=== PATIENT | male | born 1940 | race Caucasian/White ===

== ENCOUNTER 2019-06-28 11:25 | Emergency (ER) | payer MEDICARE ==
[2019-06-28 11:29] VITALS: TEMP 98
--- NOTE | 2019-06-28 11:48 | ED ---
GI Bleed HPI - General Chief complaint: GI Bleed Stated complaint: Blood in stool Time Seen by Provider: 06/28/19 11:30 Source: patient, RN notes reviewed Mode of arrival: ambulatory Limitations: no limitations - History of Present Illness Initial comments: This is a 79-year-old male with essentially benign past medical history who is nonsmoker nondrinker who also states he had a colonoscopy that was within normal limits within the last year who states he had 2 bowel movements this morning that were bowel movement Red colored material. He's not sure what his he does state he has been eating a lot of Jell-O especially red Jell-O recently. After discussion with his he did present with this complaint in for evaluation. He does deny any fevers chills nausea vomiting sweats abdominal pain of any sort he's not on any medications at all. No other modifying factors MD complaint: other - Related Data Home Medications Medication Instructions Recorded Confirmed No Known Home Medications 06/28/19 06/28/19 Allergies Allergy/AdvReac Type Severity Reaction Status Date / Time No Known Allergies Allergy Verified 06/28/19 12:15 Review of Systems ROS Statement: Those systems with pertinent positive or pertinent negative responses have been documented in the HPI. ROS Other: All systems not noted in ROS Statement are negative. Past Medical History Past Medical History: No Reported History History of Any Multi-Drug Resistant Organisms: None Reported Past Surgical History: No Surgical Hx Reported Past Psychological History: No Psychological Hx Reported Smoking Status: Never smoker Past Alcohol Use History: None Reported Past Drug Use History: None Reported General Exam - General Exam Comments Initial Comments: This is a well-developed well-nourished awake alert oriented 3 male Limitations: no limitations General appearance: alert, in no apparent distress Head exam: Present: atraumatic, normocephalic, normal inspection Eye exam: Present: normal appearance, PERRL, EOMI. Absent: scleral icterus, conjunctival injection, periorbital swelling ENT exam: Present: normal exam, mucous membranes moist Neck exam: Present: normal inspection. Absent: tenderness, meningismus, lymphadenopathy Respiratory exam: Present: normal lung sounds bilaterally. Absent: respiratory distress, wheezes, rales, rhonchi, stridor Cardiovascular Exam: Present: regular rate, normal rhythm, normal heart sounds. Absent: systolic murmur, diastolic murmur, rubs, gallop, clicks GI/Abdominal exam: Present: soft, normal bowel sounds. Absent: distended, tenderness, guarding, rebound, rigid, bruit, pulsatile mass Rectal exam: Present: normal inspection, heme (+) stool, other (Brown colored stool with streaks of red in it knocked the usual presentation however for blood. It was heme positive) Extremities exam: Present: normal inspection, full ROM, normal capillary refill. Absent: tenderness, pedal edema, joint swelling, calf tenderness Back exam: Present: normal inspection Neurological exam: Present: alert, oriented X3, CN II-XII intact Psychiatric exam: Present: normal affect, normal mood Skin exam: Present: warm, dry, intact, normal color. Absent: rash Course Vital Signs 06/28/19 11:27 Temperature 98.0 F Pulse Rate 89 Respiratory 16 Rate Blood Pressure 123/83 O2 Sat by Pulse 99 Oximetry Medical Decision Making - Medical Decision Making I did discuss findings with the patient he did present with heme positive stools however he denies the anything that may have iron and it was not a lot of red meat not iron pills this that above. His physical exam was unremarkable lab report reports are within normal limits after discussion with the patient he would like to be discharged to follow-up with his doctor outpatient. This is a reasonable plan. He was cautioned come back if any problems such as increased bleeding any abdominal pain any other symptoms otherwise he should be reasonable to follow-up with his doctor in 2 days. - Lab Data Result diagrams: 06/28/19 11:45 06/28/19 11:45 Lab Results 06/28/19 06/28/19 06/28/19 Range/Units 11:45 11:45 11:45 WBC 8.2 (3.8-10.6) k/uL RBC 5.00 (4.30-5.90) m/uL Hgb 16.0 (13.0-17.5) gm/dL Hct 46.9 (39.0-53.0) % MCV 93.7 (80.0-100.0) fL MCH 32.0 (25.0-35.0) pg MCHC 34.1 (31.0-37.0) g/dL RDW 12.2 (11.5-15.5) % Plt Count 222 (150-450) k/uL Neutrophils % 77 % Lymphocytes % 16 % Monocytes % 4 % Eosinophils % 1 % Basophils % 1 % Neutrophils # 6.3 (1.3-7.7) k/uL Lymphocytes # 1.3 (1.0-4.8) k/uL Monocytes # 0.3 (0-1.0) k/uL Eosinophils # 0.1 (0-0.7) k/uL Basophils # 0.1 (0-0.2) k/uL PT 10.9 (9.0-12.0) sec INR 1.0 (<1.2) APTT 25.1 (22.0-30.0) sec Sodium 140 (137-145) mmol/L Potassium 4.4 (3.5-5.1) mmol/L Chloride 104 (98-107) mmol/L Carbon Dioxide 26 (22-30) mmol/L Anion Gap 10 mmol/L BUN 17 (9-20) mg/dL Creatinine 0.63 L (0.66-1.25) mg/dL Est GFR (CKD-EPI)AfAm >90 (>60 ml/min/1.73 sqM) Est GFR (CKD-EPI)NonAf >90 (>60 ml/min/1.73 sqM) Glucose 111 H (74-99) mg/dL Calcium 9.5 (8.4-10.2) mg/dL Total Bilirubin 0.8 (0.2-1.3) mg/dL AST 23 (17-59) U/L ALT 13 (4-49) U/L Alkaline Phosphatase 86 (38-126) U/L Total Protein 7.4 (6.3-8.2) g/dL Albumin 4.3 (3.5-5.0) g/dL Stool Occult Blood (Negative) Blood Type Blood Type Recheck Bld Type Recheck Status Antibody Screen Spec Expiration Date 06/28/19 06/28/19 Range/Units 11:45 12:00 WBC (3.8-10.6) k/uL RBC (4.30-5.90) m/uL Hgb (13.0-17.5) gm/dL Hct (39.0-53.0) % MCV (80.0-100.0) fL MCH (25.0-35.0) pg MCHC (31.0-37.0) g/dL RDW (11.5-15.5) % Plt Count (150-450) k/uL Neutrophils % % Lymphocytes % % Monocytes % % Eosinophils % % Basophils % % Neutrophils # (1.3-7.7) k/uL Lymphocytes # (1.0-4.8) k/uL Monocytes # (0-1.0) k/uL Eosinophils # (0-0.7) k/uL Basophils # (0-0.2) k/uL PT (9.0-12.0) sec INR (<1.2) APTT (22.0-30.0) sec Sodium (137-145) mmol/L Potassium (3.5-5.1) mmol/L Chloride (98-107) mmol/L Carbon Dioxide (22-30) mmol/L Anion Gap mmol/L BUN (9-20) mg/dL Creatinine (0.66-1.25) mg/dL Est GFR (CKD-EPI)AfAm (>60 ml/min/1.73 sqM) Est GFR (CKD-EPI)NonAf (>60 ml/min/1.73 sqM) Glucose (74-99) mg/dL Calcium (8.4-10.2) mg/dL Total Bilirubin (0.2-1.3) mg/dL AST (17-59) U/L ALT (4-49) U/L Alkaline Phosphatase (38-126) U/L Total Protein (6.3-8.2) g/dL Albumin (3.5-5.0) g/dL Stool Occult Blood Positive (Negative) Blood Type A Positive Blood Type Recheck No Previous Record Bld Type Recheck Status CABO Indicated Antibody Screen NEGATIVE Spec Expiration Date 07/01/2019 - 2340 - Radiology Data Radiology results: report reviewed (I did review the imaging and report no acute findings.), image reviewed Disposition Clinical Impression: Heme positive stool Disposition: HOME SELF-CARE Condition: Good Instructions (If sedation given, give patient instructions): Gastrointestinal Bleeding (ED) Additional Instructions: Follow-up with your doctor on Sunday06/30/19. Still avoid red meat or red colored Is patient prescribed a controlled substance at d/c from ED?: No Referrals: Nonstaff,Physician [Primary Care Provider] - 1-2 days
[2019-06-28 11:56] LABS: Basophils # (A) 0.1 k/uL (0-0.2); Basophils % (A) 1 %; Eosinophils # (A) 0.1 k/uL (0-0.7); Eosinophils % (A) 1 %; HCT 46.9 % (39.0-53.0); Lymphocytes # (A) 1.3 k/uL (1.0-4.8); Lymphocytes % (A) 16 %; MCHC 34.1 g/dL (31.0-37.0); MCV 93.7 fL (80.0-100.0); Mean Platelet Volume 9.1; Monocytes # (A) 0.3 k/uL (0-1.0); Monocytes % (A) 4 %; Neutrophils # (A) 6.3 k/uL (1.3-7.7); Neutrophils % (A) 77 %; Platelet Count 222 k/uL (150-450); RDW 12.2 % (11.5-15.5); WBC 8.2 k/uL (3.8-10.6)
[2019-06-28 12:05] LABS: ALT 13 U/L (4-49); AST 23 U/L (17-59); African American GFR (CKD) >90 (>60 ml/min/1.73 sqM); Albumin 4.3 g/dL (3.5-5.0); Alkaline Phosphatase 86 U/L (38-126); Anion Gap 10 mmol/L; Blood Urea Nitrogen 17 mg/dL (9-20); Calcium 9.5 mg/dL (8.4-10.2); Carbon Dioxide 26 mmol/L (22-30); Chloride 104 mmol/L (98-107); Glucose 111 mg/dL (74-99); Non-African American GFR(CKD) >90 (>60 ml/min/1.73 sqM); Potassium 4.4 mmol/L (3.5-5.1); Sodium 140 mmol/L (137-145); Total Bilirubin 0.8 mg/dL (0.2-1.3); Total Protein 7.4 g/dL (6.3-8.2)
[2019-06-28 12:33] LABS: Partial Thromboplastin Time 25.1 sec (22.0-30.0); Prothrombin Time 10.9 sec (9.0-12.0)
--- NOTE | 2019-06-28 12:34 | XR ---
EXAMINATION TYPE: XR KUB , 2 VIEWS DATE OF EXAM ORDERED: 06/28/2019 HISTORY: Blood per rectum. COMPARISON: None. FINDINGS: Lung bases are clear. Within the abdomen, the abdominal gas pattern is normal. There is no evidence of obstruction or free air. There is a moderate dextroscoliosis. There are degenerative changes within the lumbar spine. No unusual calcifications are seen. IMPRESSION: NO ACUTE INTRA-ABDOMINAL ABNORMALITY
--- NOTE | 2019-06-28 13:49 | ED ---
Medical Decision Making - Lab Data Result diagrams: 06/28/19 11:45 06/28/19 11:45 Lab Results 06/28/19 06/28/19 06/28/19 Range/Units 11:45 11:45 11:45 WBC 8.2 (3.8-10.6) k/uL RBC 5.00 (4.30-5.90) m/uL Hgb 16.0 (13.0-17.5) gm/dL Hct 46.9 (39.0-53.0) % MCV 93.7 (80.0-100.0) fL MCH 32.0 (25.0-35.0) pg MCHC 34.1 (31.0-37.0) g/dL RDW 12.2 (11.5-15.5) % Plt Count 222 (150-450) k/uL Neutrophils % 77 % Lymphocytes % 16 % Monocytes % 4 % Eosinophils % 1 % Basophils % 1 % Neutrophils # 6.3 (1.3-7.7) k/uL Lymphocytes # 1.3 (1.0-4.8) k/uL Monocytes # 0.3 (0-1.0) k/uL Eosinophils # 0.1 (0-0.7) k/uL Basophils # 0.1 (0-0.2) k/uL PT 10.9 (9.0-12.0) sec INR 1.0 (<1.2) APTT 25.1 (22.0-30.0) sec Sodium 140 (137-145) mmol/L Potassium 4.4 (3.5-5.1) mmol/L Chloride 104 (98-107) mmol/L Carbon Dioxide 26 (22-30) mmol/L Anion Gap 10 mmol/L BUN 17 (9-20) mg/dL Creatinine 0.63 L (0.66-1.25) mg/dL Est GFR (CKD-EPI)AfAm >90 (>60 ml/min/1.73 sqM) Est GFR (CKD-EPI)NonAf >90 (>60 ml/min/1.73 sqM) Glucose 111 H (74-99) mg/dL Calcium 9.5 (8.4-10.2) mg/dL Total Bilirubin 0.8 (0.2-1.3) mg/dL AST 23 (17-59) U/L ALT 13 (4-49) U/L Alkaline Phosphatase 86 (38-126) U/L Total Protein 7.4 (6.3-8.2) g/dL Albumin 4.3 (3.5-5.0) g/dL Stool Occult Blood (Negative) Blood Type Blood Type Recheck Bld Type Recheck Status Antibody Screen Spec Expiration Date 06/28/19 06/28/19 Range/Units 11:45 12:00 WBC (3.8-10.6) k/uL RBC (4.30-5.90) m/uL Hgb (13.0-17.5) gm/dL Hct (39.0-53.0) % MCV (80.0-100.0) fL MCH (25.0-35.0) pg MCHC (31.0-37.0) g/dL RDW (11.5-15.5) % Plt Count (150-450) k/uL Neutrophils % % Lymphocytes % % Monocytes % % Eosinophils % % Basophils % % Neutrophils # (1.3-7.7) k/uL Lymphocytes # (1.0-4.8) k/uL Monocytes # (0-1.0) k/uL Eosinophils # (0-0.7) k/uL Basophils # (0-0.2) k/uL PT (9.0-12.0) sec INR (<1.2) APTT (22.0-30.0) sec Sodium (137-145) mmol/L Potassium (3.5-5.1) mmol/L Chloride (98-107) mmol/L Carbon Dioxide (22-30) mmol/L Anion Gap mmol/L BUN (9-20) mg/dL Creatinine (0.66-1.25) mg/dL Est GFR (CKD-EPI)AfAm (>60 ml/min/1.73 sqM) Est GFR (CKD-EPI)NonAf (>60 ml/min/1.73 sqM) Glucose (74-99) mg/dL Calcium (8.4-10.2) mg/dL Total Bilirubin (0.2-1.3) mg/dL AST (17-59) U/L ALT (4-49) U/L Alkaline Phosphatase (38-126) U/L Total Protein (6.3-8.2) g/dL Albumin (3.5-5.0) g/dL Stool Occult Blood Positive (Negative) Blood Type A Positive Blood Type Recheck No Previous Record Bld Type Recheck Status CABO Indicated Antibody Screen NEGATIVE Spec Expiration Date 07/01/2019 - 234 Disposition Clinical Impression: Heme positive stool Disposition: HOME SELF-CARE Condition: Good Instructions (If sedation given, give patient instructions): Gastrointestinal Bleeding (ED) Additional Instructions: Follow-up with your doctor on Sunday06/30/19. Still avoid red meat or red colored Is patient prescribed a controlled substance at d/c from ED?: No Referrals: Nonstatammy,Physician [Primary Care Provider] - 1-2 days Krystal Henley MD [STAFF PHYSICIAN] - 1-2 days
[2019-06-28 13:57] VITALS: BP 122/78; PULSE 80; RESP 18
== END 2019-06-28 13:52 | disposition home or self-care (01) ==
LOC: EC 11:25
DX: K92.1 Melena (principal)
CPT/HCPCS: 36415; 74018; 80053; 82272; 85025; 85610; 85730; 86850; 86900; 86901; 99285

== ENCOUNTER 2020-08-24 02:31 | Inpatient (IN) | payer MEDICARE ==
[2020-08-24] MEDS ORDERED: SODIUM CHLORIDE 0.9% 1,000 ML IV STA (02:56)
--- NOTE | 2020-08-24 02:56 | ED ---
Weakness HPI - General Chief complaint: Weakness Stated complaint: Weakness Time Seen by Provider: 08/24/20 02:49 Source: patient, family, RN notes reviewed, old records reviewed Mode of arrival: wheelchair Limitations: no limitations - History of Present Illness Initial comments: This is a 80-year-old male DF for evaluation of shortness of breath. Patient has not been feeling well as of late cough congestion fevers. No family with positive history and recent history of coronavirus.patient states he is has had a cold Dese something is wrong states that he did pass out. She has been doing daily as he is significantly less and feeling significantly worse MD Complaint: generalized weakness, lack of energy -: days(s) Location: generalized Severity: severe Severity scale (1-10): 9 Quality: constant Consistency: constant Improves with: none Worsens with: movement, exertion Context: recent illness Associated Symptoms: chest pain, fever/chills, loss of appetite, [place] sea/vomiting, shortness of breath, syncope - Related Data Previous Rx's Medication Instructions Recorded Ascorbic Acid [Vitamin C] 1,000 mg PO DAILY #30 tab 08/24/20 Zinc Sulfate 220 mg PO DAILY #30 capsule 08/24/20 Allergies Allergy/AdvReac Type Severity Reaction Status Date / Time No Known Allergies Allergy Verified 08/24/20 06:46 Review of Systems ROS Statement: Those systems with pertinent positive or pertinent negative responses have been documented in the HPI. ROS Other: All systems not noted in ROS Statement are negative. Past Medical History Past Medical History: No Reported History History of Any Multi-Drug Resistant Organisms: None Reported Past Surgical History: No Surgical Hx Reported Past Psychological History: No Psychological Hx Reported Smoking Status: Never smoker Past Alcohol Use History: None Reported Past Drug Use History: None Reported General Exam Limitations: no limitations General appearance: alert, in no apparent distress Head exam: Present: atraumatic, normocephalic, normal inspection Eye exam: Present: normal appearance, PERRL, EOMI. Absent: scleral icterus, conjunctival injection, periorbital swelling ENT exam: Present: normal exam, mucous membranes moist Neck exam: Present: normal inspection. Absent: tenderness, meningismus, lymphadenopathy Respiratory exam: Present: normal lung sounds bilaterally. Absent: respiratory distress, wheezes, rales, rhonchi, stridor Cardiovascular Exam: Present: regular rate, normal rhythm, normal heart sounds. Absent: systolic murmur, diastolic murmur, rubs, gallop, clicks GI/Abdominal exam: Present: soft, normal bowel sounds. Absent: distended, tenderness, guarding, rebound, rigid Extremities exam: Present: normal inspection, full ROM, normal capillary refill. Absent: tenderness, pedal edema, joint swelling, calf tenderness Back exam: Present: normal inspection Neurological exam: Present: alert, oriented X3, CN II-XII intact Psychiatric exam: Present: normal affect, normal mood Skin exam: Present: warm, dry, intact, normal color. Absent: rash Course Vital Signs 08/24/20 08/24/20 08/24/20 02:36 03:38 06:00 Temperature 98.7 F Pulse Rate 78 77 73 Respiratory 20 16 16 Rate Blood Pressure 120/73 121/72 126/85 O2 Sat by Pulse 90 L 96 97 Oximetry - Reevaluation(s) Reevaluation #1: Medical record is reviewed Patient does have mild improvement here in the emergency department Patient informed of results questions answered EKG Findings - EKG Comments: EKG Findings:: EKG is sinus rhythm 76 AR 170 QRS 106 QTc 456 Medical Decision Making - Medical Decision Making 80 male DF for evaluation patient is positive coronavirus [place] for coronavirus with pneumonia - Lab Data Result diagrams: 08/24/20 03:05 08/24/20 03:05 Lab Results 08/24/20 08/24/20 08/24/20 Range/Units 03:05 03:05 03:05 WBC 4.3 (3.8-10.6) k/uL RBC 4.94 (4.30-5.90) m/uL Hgb 15.9 (13.0-17.5) gm/dL Hct 45.6 (39.0-53.0) % MCV 92.4 (80.0-100.0) fL MCH 32.2 (25.0-35.0) pg MCHC 34.8 (31.0-37.0) g/dL RDW 11.9 (11.5-15.5) % Plt Count 158 (150-450) k/uL MPV 8.6 Neutrophils % 72 % Lymphocytes % 19 % Monocytes % 8 % Eosinophils % 0 % Basophils % 0 % Neutrophils # 3.1 (1.3-7.7) k/uL Lymphocytes # 0.8 L (1.0-4.8) k/uL Monocytes # 0.3 (0-1.0) k/uL Eosinophils # 0.0 (0-0.7) k/uL Basophils # 0.0 (0-0.2) k/uL PT 11.1 (9.0-12.0) sec INR 1.0 (<1.2) APTT 25.7 (22.0-30.0) sec D-Dimer 0.81 H (<0.60) mg/L FEU Sodium 131 L (137-145) mmol/L Potassium 4.3 (3.5-5.1) mmol/L Chloride 97 L (98-107) mmol/L Carbon Dioxide 28 (22-30) mmol/L Anion Gap 6 mmol/L BUN 20 (9-20) mg/dL Creatinine 0.66 (0.66-1.25) mg/dL Est GFR (CKD-EPI)AfAm >90 (>60 ml/min/1.73 sqM) Est GFR (CKD-EPI)NonAf >90 (>60 ml/min/1.73 sqM) Glucose 222 H (74-99) mg/dL Plasma Lactic Acid Eusebio (0.7-2.0) mmol/L Calcium 8.6 (8.4-10.2) mg/dL Magnesium 1.8 (1.6-2.3) mg/dL Total Bilirubin 0.6 (0.2-1.3) mg/dL AST 31 (17-59) U/L ALT 25 (4-49) U/L Alkaline Phosphatase 91 (38-126) U/L Lactate Dehydrogenase 402 (313-618) U/L C-Reactive Protein 8.8 (<10.0) mg/L Total Protein 6.7 (6.3-8.2) g/dL Albumin 3.7 (3.5-5.0) g/dL Procalcitonin (0.02-0.09) ng/mL Coronavirus (PCR) (Not Detectd) 08/24/20 08/24/20 08/24/20 Range/Units 03:05 03:05 03:07 WBC (3.8-10.6) k/uL RBC (4.30-5.90) m/uL Hgb (13.0-17.5) gm/dL Hct (39.0-53.0) % MCV (80.0-100.0) fL MCH (25.0-35.0) pg MCHC (31.0-37.0) g/dL RDW (11.5-15.5) % Plt Count (150-450) k/uL MPV Neutrophils % % Lymphocytes % % Monocytes % % Eosinophils % % Basophils % % Neutrophils # (1.3-7.7) k/uL Lymphocytes # (1.0-4.8) k/uL Monocytes # (0-1.0) k/uL Eosinophils # (0-0.7) k/uL Basophils # (0-0.2) k/uL PT (9.0-12.0) sec INR (<1.2) APTT (22.0-30.0) sec D-Dimer (<0.60) mg/L FEU Sodium (137-145) mmol/L Potassium (3.5-5.1) mmol/L Chloride (98-107) mmol/L Carbon Dioxide (22-30) mmol/L Anion Gap mmol/L BUN (9-20) mg/dL Creatinine (0.66-1.25) mg/dL Est GFR (CKD-EPI)AfAm (>60 ml/min/1.73 sqM) Est GFR (CKD-EPI)NonAf (>60 ml/min/1.73 sqM) Glucose (74-99) mg/dL Plasma Lactic Acid Eusebio 1.8 (0.7-2.0) mmol/L Calcium (8.4-10.2) mg/dL Magnesium (1.6-2.3) mg/dL Total Bilirubin (0.2-1.3) mg/dL AST (17-59) U/L ALT (4-49) U/L Alkaline Phosphatase (38-126) U/L Lactate Dehydrogenase (313-618) U/L C-Reactive Protein (<10.0) mg/L Total Protein (6.3-8.2) g/dL Albumin (3.5-5.0) g/dL Procalcitonin 0.07 (0.02-0.09) ng/mL Coronavirus (PCR) Detected A (Not Detectd) - Radiology Data Radiology results: report reviewed (Chest x-ray positive for coronavirus and pneumonia), image reviewed Disposition Clinical Impression: Coronavirus infection, Pneumonia due to COVID-19 virus, Hypoxia Disposition: ADMITTED IP TO THIS HOSP Condition: Serious
[2020-08-24 03:33] LABS: Basophils % (A) 0 %; Eosinophils % (A) 0 %; HCT 45.6 % (39.0-53.0); HGB 15.9 gm/dL (13.0-17.5); Lymphocytes # (A) 0.8 k/uL (1.0-4.8); Lymphocytes % (A) 19 %; MCH 32.2 pg (25.0-35.0); MCHC 34.8 g/dL (31.0-37.0); MCV 92.4 fL (80.0-100.0); Mean Platelet Volume 8.6; Monocytes # (A) 0.3 k/uL (0-1.0); Monocytes % (A) 8 %; Neutrophils # (A) 3.1 k/uL (1.3-7.7); Neutrophils % (A) 72 %; Platelet Count 158 k/uL (150-450); RBC 4.94 m/uL (4.30-5.90); RDW 11.9 % (11.5-15.5); WBC 4.3 k/uL (3.8-10.6)
--- NOTE | 2020-08-24 03:34 | XR ---
EXAM: XR Chest, 1 View CLINICAL HISTORY: ITS.REASON XR Reason: Suspected COVID-19 pneumonia TECHNIQUE: Frontal view of the chest. COMPARISON: No relevant prior studies available. FINDINGS: Lungs: Slight interstitial prominence in the mid to lower lungs bilaterally may represent subsegmental atelectasis versus interstitial infiltrate. No consolidation is seen. Pleural space: Unremarkable. No pneumothorax. Heart: The cardiac silhouette is upper normal, exaggerated by portable technique and large body habitus. Mediastinum: Unremarkable. Bones/joints: Unremarkable. Upper abdomen: No pneumoperitoneum under the diaphragm. IMPRESSION: Slight interstitial prominence in the mid to lower lungs bilaterally may represent subsegmental atelectasis versus interstitial infiltrate. No consolidation is seen.
[2020-08-24 03:36] LABS: Partial Thromboplastin Time 25.7 sec (22.0-30.0); Prothrombin Time 11.1 sec (9.0-12.0)
[2020-08-24 03:38] LABS: ALT 25 U/L (4-49); AST 31 U/L (17-59); African American GFR (CKD) >90 (>60 ml/min/1.73 sqM); Albumin 3.7 g/dL (3.5-5.0); Alkaline Phosphatase 91 U/L (38-126); Anion Gap 6 mmol/L; Blood Urea Nitrogen 20 mg/dL (9-20); C Reactive Protein 8.8 mg/L (<10.0); Calcium 8.6 mg/dL (8.4-10.2); Carbon Dioxide 28 mmol/L (22-30); Chloride 97 mmol/L (98-107); Glucose 222 mg/dL (74-99); LDH 402 U/L (313-618); Magnesium 1.8 mg/dL (1.6-2.3); Non-African American GFR(CKD) >90 (>60 ml/min/1.73 sqM); Potassium 4.3 mmol/L (3.5-5.1); Sodium 131 mmol/L (137-145); Total Bilirubin 0.6 mg/dL (0.2-1.3); Total Protein 6.7 g/dL (6.3-8.2)
[2020-08-24 03:52] VITALS: RESP 16
[2020-08-24 03:57] LABS: D-Dimer 0.81 mg/L FEU (<0.60)
[2020-08-24] MEDS ORDERED: PNEUMONIA PROTOCOL UTILIZED 1 EACH MISC PO PRN (04:12)
[2020-08-24] MEDS ORDERED: DEXAMETHASONE SOD PHOSPHATE 10 MG/ML 1 ML VIAL IV STA (04:13)
[2020-08-24] MEDS: SODIUM CHLORIDE 0.9% 1,000 ML IV SCH ×2 (04:24→15:06)
[2020-08-24] MEDS ORDERED: ENOXAPARIN 40 MG/0.4 ML SYRINGE SQ SCH (09:00)
[2020-08-24] MEDS ORDERED: ZINC SULFATE 220 MG CAP PO SCH (09:45)
[2020-08-24] MEDS ORDERED: COLCHICINE 0.6 MG EACH PO SCH (09:45)
[2020-08-24] MEDS ORDERED: ASCORBIC ACID 500 MG TAB PO SCH (09:45)
--- NOTE | 2020-08-24 11:56 | P.HPIM ---
History of Present Illness Patient given his significant symptoms of generalized weakness tiredness and cough which has been going on since August 16. Patient denied any significant shortness of breath patient is not hypoxic at this time patient was given a dose of Decadron patient was also started on zinc, vitamin C. Patient had a recent travel history to [place] about 2-3 weeks ago. Patient was comparing of some dizziness and it appeared to be a bit dehydrated with low sodium of 131 received IV fluids patient will be given more IV fluids and after that patient will be discharged. As patient is not hypoxic probably will not require colchicine or Decadron. Chest x-ray showing slight interstitial prominence in the mid to lower lungs bilaterally. And some subsegmental atelectasis. Patient's saturations are around 93% on room air. Will ambulate the patient make sure patient is not desaturating patient will be discharged today. Patient will be asked to come back if he desaturates or gets worse. Patient will be advised to get a pulse oximeter. Review of Systems REVIEW OF SYSTEMS: CONSTITUTIONAL: As mentioned in HPI HEENT: No recent visual problems or hearing problems. Denied any sore throat. CARDIOVASCULAR: No chest pain, orthopnea, PND, no palpitations, no syncope. PULMONARY: No shortness of breath, no cough, no hemoptysis. GASTROINTESTINAL: No diarrhea, no nausea, no vomiting, no abdominal pain. NEUROLOGICAL: No headaches, no weakness, no numbness. HEMATOLOGICAL: Denies any bleeding or petechiae. GENITOURINARY: Denies any burning micturition, frequency, or urgency. MUSCULOSKELETAL/RHEUMATOLOGICAL: Denies any joint pain, swelling, or any muscle pain. ENDOCRINE: Denies any polyuria or polydipsia. The rest of the 14-point review of systems is negative. Past Medical History Past Medical History: No Reported History History of Any Multi-Drug Resistant Organisms: None Reported Past Surgical History: No Surgical Hx Reported Past Psychological History: No Psychological Hx Reported Smoking Status: Never smoker Past Alcohol Use History: None Reported Past Drug Use History: None Reported Medications and Allergies Home Medications Medication Instructions Recorded Confirmed Type Ascorbic Acid [Vitamin C] 1,000 mg PO DAILY #30 tab 08/24/20 Rx Zinc Sulfate 220 mg PO DAILY #30 capsule 08/24/20 Rx Allergies Allergy/AdvReac Type Severity Reaction Status Date / Time No Known Allergies Allergy Verified 08/24/20 06:46 Physical Exam Vitals: Vital Signs Temp Pulse Pulse Resp BP BP Pulse Ox 08/24/20 10:09 98.9 F 79 16 128/76 91 L 08/24/20 06:00 73 16 126/85 97 08/24/20 03:38 77 16 121/72 96 08/24/20 02:36 98.7 F 78 20 120/73 90 L Intake and Output 08/23/20 08/24/20 08/24/20 22:59 06:59 14:59 Other: Weight 99.79 kg PHYSICAL EXAMINATION: GENERAL: The patient is alert and oriented x3, not in any acute distress. Well developed, well nourished. HEENT: Pupils are round and equally reacting to light. EOMI. No scleral icterus. No conjunctival pallor. Normocephalic, atraumatic. No pharyngeal erythema. No thyromegaly. CARDIOVASCULAR: S1 and S2 present. No murmurs, rubs, or gallops. PULMONARY: Chest is clear to auscultation, no wheezing or crackles. ABDOMEN: Soft, nontender, nondistended, normoactive bowel sounds. No palpable organomegaly. MUSCULOSKELETAL: No joint swelling or deformity. EXTREMITIES: No cyanosis, clubbing, or pedal edema. NEUROLOGICAL: Gross neurological examination did not reveal any focal deficits. SKIN: No rashes. Results CBC & Chem 7: 08/24/20 03:05 08/24/20 03:05 Labs: Abnormal Lab Results - Last 24 Hours (Table) 08/24/20 08/24/20 08/24/20 Range/Units 03:05 03:05 03:05 Lymphocytes # 0.8 L (1.0-4.8) k/uL D-Dimer 0.81 H (<0.60) mg/L FEU Sodium 131 L (137-145) mmol/L Chloride 97 L (98-107) mmol/L Glucose 222 H (74-99) mg/dL Coronavirus (PCR) (Not Detectd) 08/24/20 Range/Units 03:07 Lymphocytes # (1.0-4.8) k/uL D-Dimer (<0.60) mg/L FEU Sodium (137-145) mmol/L Chloride (98-107) mmol/L Glucose (74-99) mg/dL Coronavirus (PCR) Detected A (Not Detectd) Assessment and Plan Plan: -Covid 19 infection with mild pneumonitis: Patient will not require any Decadron patient will be discharged today with zinc and vitamin C supplementation -Mild hypovolemic hyponatremia patient will be given IV fluids. -Elevated inflammatory markers secondary to Covid 19. There is still a chance that patient's symptoms can get worse and become hypoxic at the time patient will be asked to come back to the hospital. Patient blood sugars are high believe it secondary to Decadron patient can get his hemoglobin A1c checked as an outpatient patient was referred to PCP. Patient to was advised to contact the family members is in contact with regarding his Covid diagnosis and get his checked for Covid 19.
--- NOTE | 2020-08-24 11:57 | P.DS ---
Providers Date of admission: 08/24/20 04:13 Attending physician: Deyvi Snow Consults: 08/24/20 04:12 Consult Physician Routine Consulting Provider: Estephania Anderson Consult Reason/Comments: covid Do you want consulting provider notified?: Yes Consult Physician Routine Consulting Provider: Mercedez Francis Consult Reason/Comments: covid Do you want consulting provider notified?: Yes 08/24/20 10:22 Consult Physician Routine Consulting Provider: Teri Atkinson Consult Reason/Comments: syncope, COVID 19 Do you want consulting provider notified?: Yes Primary care physician: Physician Nonsta Hospital Course: Refer to my history of present illness for further details Patient Condition at Discharge: Serious Plan - Discharge Summary New Discharge Prescriptions: New Ascorbic Acid [Vitamin C] 1,000 mg PO DAILY #30 tab Zinc Sulfate 220 mg PO DAILY #30 capsule Discharge Medication List Ascorbic Acid [Vitamin C] 1,000 mg PO DAILY #30 tab 08/24/20 [Rx] Zinc Sulfate 220 mg PO DAILY #30 capsule 08/24/20 [Rx] Follow up Appointment(s)/Referral(s): Keyur Hernández MD [REFERRING] - 1 Week
--- NOTE | 2020-08-24 13:23 | P.CNPUL ---
History of Present Illness Consult date: 08/24/20 Reason for consult: cough, pneumonia Chief complaint: Weakness and cough and unsteady on his feet. History of present illness: This is a 80-year-old white male with no major medical illnesses, patient is a fairly healthy 80-year-old. He presented to the ER yesterday with multiple symptoms since August 16. Symptoms included generalized weakness, tiredness, and cough. Patient had no shortness of breath, however he felt lightheaded, and he had intermittent episodes of mild diarrhea. According to him he was unsteady on his feet and felt weak, and he believes that his told him that he may have passed out in the kitchen. Patient's x-ray was basically unremarkable except for possible subsegmental atelectasis at the bases. Questionable interstitial infiltrates. Patient had no shortness of breath, no fever, no chills, no hemoptysis, and no chest pain. Considering his multiple constitutional symptoms, patient had positive pcr for covid 19. Patient was admitted for observation, and we were asked to see him on consultation. By the time I saw the patient, he had hardly any pulmonary symptoms, he had no symptoms of weakness, no lightheadedness, and I felt that the patient could be cleared from the my perspective to be discharged home, however considering his near syncopal episode. Although this could be related to dehydration, suggested possibly cardiac consultation. If cleared by cardiology, patient could be cleared to go home. His labs were unremarkable including his CBC was normal d-dimer was slightly elevated at 0.81 sodium was 131. Pro-calcitonin 0.07. C-reactive protein was 8.8 and LDH was 402. Review of Systems CONSTITUTIONAL: As mentioned in HPI HEENT: Negative CARDIOVASCULAR: As noted in HPI. PULMONARY: Negative GASTROINTESTINAL: Mild diarrhea intermittently. NEUROLOGICAL: Negative except for lightheadedness and felt unsteady and weak HEMATOLOGICAL: Negative GENITOURINARY: Negative MUSCULOSKELETAL/RHEUMATOLOGICAL: Negative ENDOCRINE: Negative Psychiatric: Negative. Past Medical History Past Medical History: No Reported History History of Any Multi-Drug Resistant Organisms: None Reported Past Surgical History: No Surgical Hx Reported Past Psychological History: No Psychological Hx Reported Smoking Status: Never smoker Past Alcohol Use History: None Reported Past Drug Use History: None Reported Medications and Allergies Home Medications Medication Instructions Recorded Confirmed Type Ascorbic Acid [Vitamin C] 1,000 mg PO DAILY #30 tab 08/24/20 Rx Zinc Sulfate 220 mg PO DAILY #30 capsule 08/24/20 Rx Allergies Allergy/AdvReac Type Severity Reaction Status Date / Time No Known Allergies Allergy Verified 08/24/20 06:46 Physical Exam Vitals: Vital Signs Temp Pulse Pulse Resp BP BP Pulse Ox 08/24/20 10:09 98.9 F 79 16 128/76 91 L 08/24/20 06:00 73 16 126/85 97 08/24/20 03:38 77 16 121/72 96 08/24/20 02:36 98.7 F 78 20 120/73 90 L Intake and Output 08/23/20 08/24/20 08/24/20 22:59 06:59 14:59 Other: Weight 99.79 kg 99.79 kg Physical Exam: Revealed 80-year-old white male in no distress. Head: Atraumatic, normocephalic. HEENT:[Neck is supple.] [No neck masses.] [No thyromegaly.] [No JVD.] Chest: [Clear throughout, no crackles, no rhonchi, no wheezes.] Cardiac Exam: [Normal S1 and S2, no S3 gallop, no murmur.] Abdomen: [Soft, nontender, no megaly, no rebound, no guarding, normal bowel sounds.] Extremities: [No clubbing, no edema, no cyanosis.] Neurological Exam: [No focal neurologic deficit.] Alert and oriented 3. Psychiatric: Normal mood affect and normal mental status examination. Skin: No rashes. Musculoskeletal: No deformities and no limitation in range of motion. Results - Laboratory Findings CBC and BMP: 08/24/20 03:05 08/24/20 03:05 PT/INR, D-dimer PT 11.1 sec (9.0-12.0) 08/24/20 03:05 INR 1.0 (<1.2) 08/24/20 03:05 D-Dimer 0.81 mg/L FEU (<0.60) H 08/24/20 03:05 Abnormal lab findings: Abnormal Labs 08/24/20 08/24/20 08/24/20 03:05 03:05 03:05 Lymphocytes # 0.8 L D-Dimer 0.81 H Sodium 131 L Chloride 97 L Glucose 222 H Coronavirus (PCR) 08/24/20 03:07 Lymphocytes # D-Dimer Sodium Chloride Glucose Coronavirus (PCR) Detected A - Diagnostic Findings Chest x-ray: image reviewed (As noted in HPI.) Assessment and Plan Assessment: Impression: Acute covid 19 infection, and possibly mild pneumonitis, secondary to covid 19. Multiple constitutional symptoms and suspect some component of hypovolemia and hyponatremia secondary to GI losses/diarrhea. Slightly elevated inflammatory markers secondary to Covid 19. Near syncope and lightheadedness related to dehydration. Doubt cardiac etiolo gy, however would consider cardiac evaluation if his symptoms persist. Recommendation: Agree with the present treatment plan including the Covid 19 cocktail. Agree with hydration. Consider discharge planning later today. Follow-up on outpatient basis. Patient to be instructed to come back to ER if his condition gets any worse Time with Patient: Greater than 30
[2020-08-24 14:13] VITALS: BP 127/74; PULSE 80; TEMP 98.2
[2020-08-24] MEDS ORDERED: BAMLANIVIMAB 700 MG in SODIUM CHLORIDE 0.9% 50 ML IVPB ONE (15:00)
[2020-08-25] MEDS ORDERED: dexAMETHasone 2 MG TAB PO SCH (09:00)
[2020-08-25] MEDS ORDERED: DEXAMETHASONE SOD PHOSPHATE 10 MG/ML 1 ML VIAL IV SCH (09:00)
--- NOTE | 2020-08-27 15:29 | P.CONS ---
History of Present Illness - Reason for Consult Consult date: 08/24/20 COVID 19 ifection Requesting physician: Min Rendon - Chief Complaint Weakness few days - History of Present Illness Patient is 80-year-old male presented to [facility] ER for evaluation of generalized weakness and no energy tiredness and cough the patient said his is going on for about 8 days the patient denies having any significant urinary symptoms patient denies having any chest pain shortness of breath that he minimal cough which is dry in nature some nausea but no vomiting denies any bowel pain did have diarrhea 3-4 episodes per day but no blood or mucus in the stool, with the symptoms the patient was evaluated by the ER physician on arrival to the ER the patient has been afebrile, the patient did have a normal white count with lymphopenia d-dimer was mildly elevated at 0.81 kidney function was normal liver enzymes normal CRP was normal chronic PCR came back positive, patient did have a chest x-ray slight interstitial prominence in the mid to lower lungs bilaterally patient is currently not hypoxic has received IV fluids overnight and is feeling much better Review of Systems Positive point has been mentioned in the HPI rest of the systems are negative Past Medical History Past Medical History: No Reported History History of Any Multi-Drug Resistant Organisms: None Reported Past Surgical History: No Surgical Hx Reported Past Psychological History: No Psychological Hx Reported Smoking Status: Never smoker Past Alcohol Use History: None Reported Past Drug Use History: None Reported Medications and Allergies Home Medications Medication Instructions Recorded Confirmed Type Ascorbic Acid [Vitamin C] 1,000 mg PO DAILY #30 tab 08/24/20 Rx Zinc Sulfate 220 mg PO DAILY #30 capsule 08/24/20 Rx Allergies Allergy/AdvReac Type Severity Reaction Status Date / Time No Known Allergies Allergy Verified 08/24/20 06:46 Physical Exam Vitals: Vital Signs Temp Pulse Pulse Resp BP BP Pulse Ox 08/24/20 14:12 98.2 F 80 16 127/74 90 L 08/24/20 10:09 98.9 F 79 16 128/76 91 L 08/24/20 06:00 73 16 126/85 97 08/24/20 03:38 77 16 121/72 96 08/24/20 02:36 98.7 F 78 20 120/73 90 L Intake and Output 08/23/20 08/24/20 08/24/20 22:59 06:59 14:59 Other: Weight 99.79 kg 99.79 kg GENERAL DESCRIPTION: Elderly male lying in bed, no distress. No tachypnea or accessory muscle of respiration use. HEENT: Shows Pallor , no scleral icterus. Oral mucous membrane is dry. No pharyngeal erythema or thrush NECK: Trachea central, no thyromegaly. LUNGS: Unlabored breathing. Clear to auscultation anteriorly. No wheeze or crackle. HEART: S1, S2, regular rate and rhythm. No loud murmur ABDOMEN: Soft, no tenderness , guarding or rigidity, no organomegaly EXTREMITIES: No edema of feet. SKIN: No rash, no masses palpable. NEUROLOGICAL: The patient is awake, alert, oriented x3, mood and affect normal. Results CBC & Chem 7: 08/24/20 03:05 08/24/20 03:05 Labs: Abnormal Lab Results - Last 24 Hours (Table) 08/24/20 08/24/20 08/24/20 Range/Units 03:05 03:05 03:05 Lymphocytes # 0.8 L (1.0-4.8) k/uL D-Dimer 0.81 H (<0.60) mg/L FEU Sodium 131 L (137-145) mmol/L Chloride 97 L (98-107) mmol/L Glucose 222 H (74-99) mg/dL Coronavirus (PCR) (Not Detectd) 08/24/20 Range/Units 03:07 Lymphocytes # (1.0-4.8) k/uL D-Dimer (<0.60) mg/L FEU Sodium (137-145) mmol/L Chloride (98-107) mmol/L Glucose (74-99) mg/dL Coronavirus (PCR) Detected A (Not Detectd) Assessment and Plan Assessment: 1- patient presented to hospital with generalized weakness no energy in this patient who did have diarrhea minimal cough no shortness of breath chest x-ray with mild interstitial prominence inflammatory markers are not elevated possible mild covid 19 disease infection in this patient currently not hypoxic and no need for supplemental oxygen therapy and is overall feeling better (1) Pneumonia due to COVID-19 virus Status: Acute Code(s): U07.1 - COVID-19; J12.82 - Pneumonia due to coronavirus disease 2018 SNOMED Code(s): 140942711210617923 Plan: 1- patient has been advised to increase his fluid intake, he will be advised zinc multivitamin 2- no need for antiviral or steroids We will follow on clinical condition and cultures to further adjust medication if needed Thank you for this consultation will follow this patient with you Time with Patient: Greater than 30
== END 2020-08-24 16:45 | disposition home or self-care (01) | DRG 177 ==
LOC: EC 02:31 → 4SSUR 04:13 → 1SOBS 07:10
PROVIDERS: ADMIT Hospitalist; ATTEND Hospitalist
DX: U07.1 COVID-19 (principal); J12.82 Pneumonia due to coronavirus disease 2019; J98.11 Atelectasis; E87.1 Hypo-osmolality and hyponatremia; E86.0 Dehydration; R09.02 Hypoxemia; T38.0X5A Adverse effect of glucocorticoids and synthetic analogues, initial encounter; R73.9 Hyperglycemia, unspecified; R26.81 Unsteadiness on feet; R55 Syncope and collapse
CPT/HCPCS: 36415; 71045; 80053; 83605; 83615; 83735; 84145; 85025; 85379; 85610; 85730; 86140; 87040; 87635; 93005; 96361; 96374; 99285

== ENCOUNTER 2022-11-10 19:05 | Emergency (ER) | payer MEDICARE ==
[2022-11-10] MEDS ORDERED: DIPH,PERTUS(ACELL)TETVAC-LF 0.5 ML VIAL IM ONE (19:32)
[2022-11-10 19:38] VITALS: RESP 18
--- NOTE | 2022-11-10 19:42 | ED ---
Fall HPI - General Chief Complaint: Fall Stated Complaint: Fall Time Seen by Provider: 11/10/22 19:25 Source: patient Mode of arrival: ambulatory - History of Present Illness Initial Comments: Patient is an 82-year-old male presenting with chief complaint of fall. Patient was helping his grandson move things out of the bed of the pickup truck when he fell over the side and hit his head on. He denies any loss of consciousness and he is not on any blood. He does have an abrasion to the scalp. He is complaining of neck pain and bilateral shoulder soreness. No chest pain, d ifficulty breathing, palpitations, numbness, tingling, weakness, nausea, vomiting, dizziness, vision or hearing changes. - Related Data Previous Rx's Medication Instructions Recorded Ascorbic Acid [Vitamin C] 1,000 mg PO DAILY #30 tab 08/24/20 Zinc Sulfate 220 mg PO DAILY #30 capsule 08/24/20 Allergies Allergy/AdvReac Type Severity Reaction Status Date / Time No Known Allergies Allergy Verified 11/10/22 19:13 Review of Systems ROS Statement: Those systems with pertinent positive or pertinent negative responses have been documented in the HPI. ROS Other: All systems not noted in ROS Statement are negative. Past Medical History Past Medical History: No Reported History History of Any Multi-Drug Resistant Organisms: None Reported Past Surgical History: No Surgical Hx Reported Past Psychological History: No Psychological Hx Reported Smoking Status: Never smoker Past Alcohol Use History: None Reported Past Drug Use History: None Reported General Exam Limitations: no limitations General appearance: alert, in no apparent distress Head exam: Present: atraumatic, normocephalic, normal inspection Eye exam: Present: normal appearance, PERRL, EOMI. Absent: scleral icterus, conjunctival injection, periorbital swelling Pupils: Present: normal accommodation Neck exam: Present: normal inspection, full ROM. Absent: tenderness Respiratory exam: Present: normal lung sounds bilaterally. Absent: respiratory distress, wheezes, rales, rhonchi, stridor Cardiovascular Exam: Present: regular rate, normal rhythm, normal heart sounds. Absent: systolic murmur, diastolic murmur, rubs, gallop, clicks Neurological exam: Present: alert, oriented X3, CN II-XII intact Expanded Patient oriented to: Present: person, place, time Speech: Present: fluid speech Cranial nerves: EOM's Intact: Normal, Facial Sensation: Normal Cerebellar function: Finger to Nose: Normal, Heel to Taylor: Normal Motor strength exam: RUE: 5, LUE: 5, RLE: 5, LLE: 5 Eye Response: (4) open spontaneously Motor Response: (6) obeys commands Verbal Response: (5) oriented [place] Total: 15 Psychiatric exam: Present: normal affect, normal mood Skin exam: Present: warm, dry, intact, normal color. Absent: rash Course Vital Signs 11/10/22 11/10/22 11/10/22 19:12 19:37 21:31 Temperature 98.3 F 98.7 F Pulse Rate 109 H 102 H 91 Respiratory 20 18 18 Rate Blood Pressure 122/77 119/85 145/101 O2 Sat by Pulse 99 92 L 93 L Oximetry Medical Decision Making - Medical Decision Making Was pt. sent in by a medical professional or institution (, PA, ENGINEERING VICE PRESIDENT, urgent care, hospital, or skilled nursing...) When possible be specific @ -No Did you speak to anyone other than the patient for history (EMS, parent, family, police, friend...)? What history was obtained from this source @ -No Did you review nursing and triage notes (agree or disagree)? Why? @ -I reviewed and agree with nursing and triage notes Were old charts reviewed (outside hosp., previous admission, EMS record, old EKG, old radiological studies, urgent care reports/EKG's, skilled nursing records)? Report findings @ -No old charts were reviewed Differential Diagnosis (chest pain, altered mental status, abdominal pain women, abdominal pain men, vaginal bleeding, weakness, fever, dyspnea, syncope, headache, dizziness, GI bleed, back pain, seizure, CVA, palpatations, mental health, musculoskeletal)? @ -not applicable EKG interpreted by me (3pts min.). @ -As above X-rays interpreted by me (1pt min.). @ -None done CT interpreted by me (1pt min.). @ -CT shows no intracranial hemorrhage. There are old-appearing ischemic changes right frontal and right occipital lobes. Age-related atrophy is noted. No acute osseous abnormalities of the cervical spine U/S interpreted by me (1pt. min.). @ -None done What testing was considered but not performed or refused? (CT, X-rays, U/S, labs)? Why? @ -None What meds were considered but not given or refused? Why? @ -None Did you discuss the management of the patient with other professionals (professionals i.e. , PA, ENGINEERING VICE PRESIDENT, lab, RT, psych nurse, social science teacher, historic clothing and costume maker, teacher, executive vice president and chief financial officer, manager rn case)? Give summary @ -No Was smoking cessation discussed for >3mins.? @ -No Was critical care preformed (if so, how long)? @ -No Were there social determinants of health that impacted care today? How? (Homelessness, low income, unemployed, alcoholism, drug addiction, transportation, low edu. Level, literacy, decrease access to med. care, care home, rehab)? @ -No Was there de-escalation of care discussed even if they declined (Discuss DNR or withdrawal of care, Hospice)? DNR status @ -No What co-morbidities impacted this encounter? (DM, HTN, Smoking, COPD, CAD, Cancer, CVA, ARF, Chemo, Hep., AIDS, mental health diagnosis, sleep apnea, morbid obesity)? @ -None Was patient admitted / discharged? Hospital course, mention meds given and route, prescriptions, significant lab abnormalities, going to OR and other pertinent info. @ -This is an 82-year-old male presenting for evaluation post head injury. Patient fell over the side of a parked pickup truck bed. No loss of consciousness or blood thinners. He has an abrasion to the back of the head. No focal neurological deficits on exam. CT shows no acute intracranial process or fracture of the cervical spine. Patient is educated on supportive management at home. Follow-up with PCP. Report back to ER with any new or worsening symptoms. Discussed return parameters and answered all questions. Patient conveyed verbal understanding and agreed to the plan. I discussed this case in detail with my attending Dr. Nice Undiagnosed new problem with uncertain prognosis? @ -No Drug Therapy requiring intensive monitoring for toxicity (Heparin, Nitro, Insulin, Cardizem)? @ -No Were any procedures done? @ -No Diagnosis/symptom? @ -Head injury Acute, or Chronic, or Acute on Chronic? @ -Acute Uncomplicated (without systemic symptoms) or Complicated (systemic symptoms)? @ -uncomplicated Side effects of treatment? @ -No Exacerbation, Progression, or Severe Exacerbation? @ -No Poses a threat to life or bodily function? How? (Chest pain, [place], [place], pneumonia, PE, COPD, DKA, ARF, appy, cholecystitis, CVA, Diverticulitis, Homicidal, Suicidal, threat to staff... and all critical care pts) @ -No Disposition Clinical Impression: Fall, Scalp abrasion Disposition: HOME SELF-CARE Condition: Good Instructions (If sedation given, give patient instructions): Head Injury (ED) Additional Instructions: Follow-up with PCP. Report back to ER with any new or worsening symptoms. Is patient prescribed a controlled substance at d/c from ED?: No Referrals: Nonstaff,Physician [REFERRING] - 1-2 days Time of Disposition: 21:21
--- NOTE | 2022-11-10 21:03 | CT ---
EXAMINATION TYPE: CT brain connor sánchez DATE OF EXAM: 11/10/2022 COMPARISON: None HISTORY: fall hit head CT DLP: 1608.9 mGycm, Automated exposure control for dose reduction was used. CONTRAST: Patient injected with 0 mL of Isovue 300. CT of the brain is performed utilizing 3 mm thick sections through the posterior fossa and 3 mm thick sections through the remaining calvarium. Study is performed within 24 hours of arrival to the hospital. No abnormal hyperdensity is present to suggest an acute intracranial hemorrhage. No mass lesion is evident. Physiologic basal ganglion calcification is present bilaterally. No acute infarcts are evident. There is hypodensity extending from the anterior horn right lateral v entricle towards the cortex compatible with ischemic change. No mass effect is evident and this is li christopher old. There is some encephalomalacia of the medial right occipital horn. Ventricles and sulci are dominant for the patient age. Paranasal sinuses and mastoid air cells within the [id number] are clear. IMPRESSIONS: 1. Old appearing ischemic changes right frontal and right occipital lobes discussed above. 2. Age-related atrophy. CT cervical spine. COMPARISON: None CT of the cervical spine is performed in the axial plane at 2 mm thick sections. Reconstructed image s in the coronal, and sagittal plane are reviewed on the computer. No acute fractures are evident. Vertebral body alignment is normal. There is diffuse loss of disc height throughout the cervical spine. There appears to be complete loss with possible congenital fusion C5-6. Severe disc space narrowing is present C6-7 and C7-T1. Posterior endplate spurring is present seen C4-5, C5-6, C6-7 and C7-T1. No AP spinal canal stenosis i s present. Uncovertebral joint hypertrophy and facet hypertrophy is present with bilateral foraminal narrowing, greater on the left the right cervical spine. This appears most significant at the left C4-5 level. Vertebral body heights are preserved. No spinal canal stenosis is evident. IMPRESSIONS: 1. No acute osseous abnormalities cervical spine. 2. 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 3. Advanced degenerative disc changes through the cervical spine greatest C5-6.
[2022-11-10 21:33] VITALS: BP 145/101; PULSE 91; TEMP 98.7
== END 2022-11-10 21:33 | disposition home or self-care (01) ==
LOC: EC 19:05
DX: S00.01XA Abrasion of scalp, initial encounter (principal); W06.XXXA Fall from bed, initial encounter; Y92.812 Truck as the place of occurrence of the external cause
CPT/HCPCS: 70450; 72125; 99283

== ENCOUNTER 2023-04-18 07:18 | Emergency (ER) | payer MEDICARE ==
[2023-04-18] MEDS ORDERED: ONDANSETRON 4 MG/2 ML VIAL IVP STA (08:12)
[2023-04-18] MEDS ORDERED: MORPHINE SULFATE 4 MG/ML SYRINGE IVP STA (08:12)
[2023-04-18 08:21] VITALS: TEMP 97.4
[2023-04-18 08:43] LABS: Basophils % (A) 0 %; Eosinophils % (A) 0 %; HCT 45.1 % (39.0-53.0); HGB 15.2 gm/dL (13.0-17.5); Lymphocytes # (A) 0.8 k/uL (1.0-4.8); Lymphocytes % (A) 10 %; MCH 30.8 pg (25.0-35.0); MCHC 33.7 g/dL (31.0-37.0); MCV 91.3 fL (80.0-100.0); Mean Platelet Volume 8.9; Monocytes # (A) 0.5 k/uL (0-1.0); Monocytes % (A) 6 %; Neutrophils # (A) 7.4 k/uL (1.3-7.7); Neutrophils % (A) 83 %; Platelet Count 194 k/uL (150-450); RBC 4.94 m/uL (4.30-5.90); RDW 12.7 % (11.5-15.5); WBC 8.9 k/uL (3.8-10.6)
[2023-04-18 08:57] LABS: INR 1.2 (<1.2); Prothrombin Time 12.3 sec (10.0-12.5)
[2023-04-18 09:01] LABS: ALT 17 U/L (4-49); AST 23 U/L (17-59); African American GFR (CKD) >90 (>60 ml/min/1.73 sqM); Albumin 4.1 g/dL (3.5-5.0); Alkaline Phosphatase 75 U/L (38-126); Anion Gap 12 mmol/L; Blood Urea Nitrogen 13 mg/dL (9-20); Calcium 9.2 mg/dL (8.4-10.2); Carbon Dioxide 21 mmol/L (22-30); Chloride 103 mmol/L (98-107); Glucose 164 mg/dL (74-99); Non-African American GFR(CKD) >90 (>60 ml/min/1.73 sqM); Sodium 136 mmol/L (137-145); Total Bilirubin 1.3 mg/dL (0.2-1.3); Total Protein 7.5 g/dL (6.3-8.2)
[2023-04-18] MEDS ORDERED: HYDROmorphone 1 MG/ML 1 ML SYRINGE IVP STA (09:07)
--- NOTE | 2023-04-18 09:44 | XR ---
EXAMINATION TYPE: XR shoulder complete LT DATE OF EXAM: 04/18/2023 9:38 AM INDICATION: Patient age:Male; 83 years old; Reason for study: fall off porch; COMPARISON: Chest radiograph 03/14/2023 TECHNIQUE: The left shoulder was examined in internal rotation, external rotation, and scapular Y vi ew projections. FINDINGS: Acute comminuted mildly displaced fracture of the distal clavicle with widening of the AC joint. Mild elevation of the distal clavicle relation to the acromion. There is stranding soft tissue swelling. No acute fracture or dislocation of the humerus or glenoid. Mild degenerative changes of the left dashawn ulder with joint space narrowing and inferior spurring. The remaining portions of the visualized ches t are unremarkable. IMPRESSION: 1. Acute comminuted distal clavicle fracture. 2. Mild degenerative changes of the left shoulder.
--- NOTE | 2023-04-18 09:46 | XR ---
EXAMINATION TYPE: XR ribs LT w pa chest xray DATE OF EXAM: 04/18/2023 9:38 AM CLINICAL INDICATION:Male, 83 years old with history of fall, left sided rib pain; COMPARISON: 02/11/2023. TECHNIQUE: XR ribs LT w pa chest xray; Frontal and oblique views of the ribs with frontal chest radio graph. FINDINGS: Cortical defect involving left rib #7e seen on one view only. Multilevel degeneration ann es of the spine with scoliosis. Degeneration changes in the left shoulder with osteophyte formation. There is a distal left clavicle fracture. IMPRESSION: 1. Cortical step-off within the left rib 7 which could represent nondisplaced fracture. No additiona l fractures definitively visualized. 2. Left distal clavicle fracture. 3. Scoliosis and degeneration changes of the spine.
[2023-04-18] MEDS ORDERED: PROCHLORPERAZINE INJ 10 MG/2 ML VIAL IVP STA (09:48)
--- NOTE | 2023-04-18 10:37 | ED ---
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 He landed onto left shoulder and left chest wall. He does take a blood thinner. He is right hand dominant. He has not taken anything for pain. Reports to significant left shoulder and collar pain. Mild chest wall pain. No shortness of breath or cough - Related Data Home Medications Medication Instructions Recorded Confirmed Apixaban [Eliquis] 5 mg PO BID 04/18/23 04/18/23 Previous Rx's Medication Instructions Recorded Metoprolol Succinate (ER) [Toprol 25 mg PO DAILY #30 tab 03/14/23 XL] Docusate [Colace] 100 mg PO BID PRN #20 capsule 04/18/23 HYDROcodone/APAP 7.5-325MG [[place] 1 tab PO Q6HR PRN 3 Days #12 tab 04/18/23 7.5-325] Ondansetron Odt [Zofran Odt] 4 mg PO Q8HR PRN #10 tab 04/18/23 Allergies Allergy/AdvReac Type Severity Reaction Status Date / Time losartan AdvReac Dizziness Verified 04/18/23 08:33 Review of Systems ROS Statement: Those systems with pertinent positive or pertinent negative responses have been documented in the HPI. ROS Other: All systems not noted in ROS Statement are negative. Past Medical History Past Medical History: No Reported History History of Any Multi-Drug Resistant Organisms: None Reported Past Surgical History: No Surgical Hx Reported Past Anesthesia/Blood Transfusion Reactions: No Reported Reaction Past Psychological History: No Psychological Hx Reported Smoking Status: Never smoker Past Alcohol Use History: None Reported Past Drug Use History: None Reported General Exam Limitations: no limitations General appearance: alert, in no apparent distress Head exam: Present: atraumatic, normocephalic, normal inspection Eye exam: Present: normal appearance, PERRL, EOMI. Absent: scleral icterus, conjunctival injection, periorbital swelling ENT exam: Present: normal exam, mucous membranes moist Neck exam: Present: normal inspection. Absent: tenderness, meningismus, lymphadenopathy Respiratory exam: Present: normal lung sounds bilaterally. Absent: respiratory distress, wheezes, rales, rhonchi, stridor Cardiovascular Exam: Present: regular rate, normal rhythm, normal heart sounds. Absent: systolic murmur, diastolic murmur, rubs, gallop, clicks GI/Abdominal exam: Present: soft, normal bowel sounds. Absent: distended, tenderness, guarding, rebound, rigid Extremities exam: Present: tenderness (significant swelling around the left shoulder. decreased flexion of left arm. 2+ DP and PT pulses. intact sensation in the left upper extremity), normal capillary refill. Absent: pedal edema, joint swelling, calf tenderness Back exam: Present: normal inspection Neurological exam: Present: alert, oriented X3, CN II-XII intact Psychiatric exam: Present: normal affect, normal mood Skin exam: Present: warm, dry, intact, normal color. Absent: rash Course Vital Signs 04/18/23 04/18/23 04/18/23 07:33 07:58 08:00 Temperature 98.9 F 97.4 F L Pulse Rate 77 77 Pulse Rate [ 78 Supine Pulse Oximetery] Respiratory 18 18 16 Rate Blood Pressure 114/69 123/83 Blood Pressure 123/88 [Right Arm Supine] O2 Sat by Pulse 91 L 91 L 92 L Oximetry 04/18/23 04/18/23 04/18/23 08:30 09:30 10:00 Temperature Pulse Rate Pulse Rate [ 74 74 67 Supine Pulse Oximetery] Respiratory 16 17 16 Rate Blood Pressure Blood Pressure 118/87 123/82 110/68 [Right Arm Supine] O2 Sat by Pulse 92 L 92 L 92 L Oximetry 04/18/23 04/18/23 04/18/23 10:30 10:45 11:10 Temperature Pulse Rate 72 78 Pulse Rate [ 65 Supine Pulse Oximetery] Respiratory 16 18 16 Rate Blood Pressure 105/71 105/71 Blood Pressure 112/73 [Right Arm Supine] O2 Sat by Pulse 92 L 98 97 Oximetry Medical Decision Making - Medical Decision Making Was pt. sent in by a medical professional or institution ([facility], SOFTWARE APPLICATION TESTER, urgent care, hospital, or longterm...) When possible be specific @ -No Did you speak to anyone other than the patient for history (EMS, parent, family, police, friend...)? What history was obtained from this source @ - Did you review nursing and triage notes (agree or disagree)? Why? @ -I reviewed and agree with nursing and triage notes Were old charts reviewed (outside hosp., previous admission, EMS record, old EKG, old radiological studies, urgent care reports/EKG's, longterm records)? Report findings @ -No Differential Diagnosis (chest pain, altered mental status, abdominal pain women, abdominal pain men, vaginal bleeding, weakness, fever, dyspnea, syncope, hea dache, dizziness, GI bleed, back pain, seizure, CVA, palpatations, mental health, musculoskeletal)? @ -shoulder dislocation, humeral fracture, clavicle fracture EKG interpreted by me (3pts min.). @ -Not done X-rays interpreted by me (1pt min.). @ -yes, clavicle and rib fracture CT interpreted by me (1pt min.). @ -None done U/S interpreted by me (1pt. min.). @ -None done What testing was considered but not performed or refused? (CT, X-rays, U/S, labs)? Why? @ -None What meds were considered but not given or refused? Why? @ -None Did you discuss the management of the patient with other professionals (professionals i.e. , PA, SOFTWARE APPLICATION TESTER, lab, RT, psych nurse, group social worker, modeling teacher, teacher, space operations officer, mental health case manager)? Give summary @ -yes, ortho clinic and obtained an appointment for the patient Was smoking cessation discussed for >3mins.? @ -No Was critical care preformed (if so, how long)? @ -No Were there social determinants of health that impacted care today? How? (Homelessness, low income, unemployed, alcoholism, drug addiction, transportation, low edu. Level, literacy, decrease access to med. care, usp, rehab)? @ -No Was there de-escalation of care discussed even if they declined (Discuss DNR or withdrawal of care, Hospice)? DNR status @ -No What co-morbidities impacted this encounter? (DM, HTN, Smoking, COPD, CAD, Cance r, CVA, ARF, Chemo, Hep., AIDS, mental health diagnosis, sleep apnea, morbid obesity)? @ -afib on coumadin Was patient admitted / discharged? Hospital course, mention meds given and route, prescriptions, significant lab abnormalities, going to OR and other perti nent info. @ -discharged. xrays show left clavicle fracture. Given pain control and placed in sling. Made an appointment for patient tomorrow at ortho office Undiagnosed new problem with uncertain prognosis? @ -No Drug Therapy requiring intensive monitoring for toxicity (Heparin, Nitro, Insulin, Cardizem)? @ -No Were any procedures done? @ -No Diagnosis/symptom? @ -acute fall, acute left clavicle fracture, acute left chest wall pain, left sided rib fracture Acute, or Chronic, or Acute on Chronic? @ -Acute Uncomplicated (without systemic symptoms) or Complicated (systemic symptoms)? @ -complicated Side effects of treatment? @ -constipation Exacerbation, Progression, or Severe Exacerbation? @ -no Poses a threat to life or bodily function? How? (Chest pain, [place], ME, pneumonia, PE, COPD, DKA, ARF, appy, cholecystitis, CVA, Diverticulitis, Homicidal, Suicidal, threat to staff... and all critical care pts) @ -No - Lab Data Result diagrams: 04/18/23 08:33 04/18/23 08:33 Lab Results 04/18/23 04/18/23 04/18/23 Range/Units 08:33 08:33 08:33 WBC 8.9 (3.8-10.6) k/uL RBC 4.94 (4.30-5.90) m/uL Hgb 15.2 (13.0-17.5) gm/dL Hct 45.1 (39.0-53.0) % MCV 91.3 (80.0-100.0) fL MCH 30.8 (25.0-35.0) pg MCHC 33.7 (31.0-37.0) g/dL RDW 12.7 (11.5-15.5) % Plt Count 194 (150-450) k/uL MPV 8.9 Neutrophils % 83 % Lymphocytes % 10 % Monocytes % 6 % Eosinophils % 0 % Basophils % 0 % Neutrophils # 7.4 (1.3-7.7) k/uL Lymphocytes # 0.8 L (1.0-4.8) k/uL Monocytes # 0.5 (0-1.0) k/uL Eosinophils # 0.0 (0-0.7) k/uL Basophils # 0.0 (0-0.2) k/uL PT 12.3 (10.0-12.5) sec INR 1.2 H (<1.2) APTT 27.0 (22.0-30.0) sec Sodium 136 L (137-145) mmol/L Potassium 4.0 (3.5-5.1) mmol/L Chloride 103 (98-107) mmol/L Carbon Dioxide 21 L (22-30) mmol/L Anion Gap 12 mmol/L BUN 13 (9-20) mg/dL Creatinine 0.48 L (0.66-1.25) mg/dL Est GFR (CKD-EPI)AfAm >90 (>60 ml/min/1.73 sqM) Est GFR (CKD-EPI)NonAf >90 (>60 ml/min/1.73 sqM) Glucose 164 H (74-99) mg/dL Calcium 9.2 (8.4-10.2) mg/dL Total Bilirubin 1.3 (0.2-1.3) mg/dL AST 23 (17-59) U/L ALT 17 (4-49) U/L Alkaline Phosphatase 75 (38-126) U/L Total Protein 7.5 (6.3-8.2) g/dL Albumin 4.1 (3.5-5.0) g/dL Disposition Clinical Impression: Fall, Fracture, clavicle, Rib fracture Disposition: HOME SELF-CARE Condition: Stable Instructions (If sedation given, give patient instructions): Clavicle Fracture (ED) Additional Instructions: Your appointment is tomorrow at 8:[address] Fabian. Please take your ID, insurance card and CD of your x-rays with you. Take the pain medications as directed. Return for any new or worsening symptoms Prescriptions: Docusate [Colace] 100 mg PO BID PRN #20 capsule PRN Reason: Constipation HYDROcodone/APAP 7.5-325MG [[place] 7.5-325] 1 tab PO Q6HR PRN 3 Days #12 tab PRN Reason: Pain Ondansetron Odt [Zofran Odt] 4 mg PO Q8HR PRN #10 tab PRN Reason: Nausea Is patient prescribed a controlled substance at d/c from ED?: Yes When asked, does pt state using other controlled substances?: No If prescribed controlled substance>3 days was MAPS reviewed?: Prescribed <3 Days If opioid is for acute pain is fill amount 7 days or less?: No Referrals: Nonstaff,Physician [Primary Care Provider] - 1-2 days Blaine Fabian MD [STAFF PHYSICIAN] - 1-2 days Time of Disposition: 10:37
[2023-04-18 11:08] VITALS: BP 105/71
[2023-04-18 11:36] VITALS: PULSE 78; RESP 16
== END 2023-04-18 11:05 | disposition home or self-care (01) ==
LOC: EC 07:18
DX: S22.32XA Fracture of one rib, left side, initial encounter for closed fracture (principal); S42.002A Fracture of unspecified part of left clavicle, initial encounter for closed fracture; I48.91 Unspecified atrial fibrillation; Z79.01 Long term (current) use of anticoagulants; Z88.8 Allergy status to other drugs, medicaments and biological substances; W17.89XA Other fall from one level to another, initial encounter
CPT/HCPCS: 36415; 80053; 85025; 85610; 85730; 71101; 73030; 99284; 96374; 96375 ×3; J2270; J0780; J2405; J1170

== ENCOUNTER → 2023-05-21 | Outpatient (CLI) | payer MEDICARE ==
[2023-05-21 14:32] LABS: African American GFR (CKD) >90 (>60 ml/min/1.73 sqM); Blood Urea Nitrogen 21 mg/dL (9-20); Non-African American GFR(CKD) >90 (>60 ml/min/1.73 sqM)
--- NOTE | 2023-05-21 15:35 | CT ---
CT CHEST FOR PULMONARY EMBOLISM. EXAMINATION TYPE: CT angio chest DATE OF EXAM: 05/21/2023 INDICATION: Follow up on PE from 03/10 CT DLP: 747.6 mGycm, Automated exposure control for dose reduction was used. CONTRAST: Patient injected with 80 cc mL of Isovue 370. COMPARISON: 03/12/2023 TECHNIQUE: CT of the chest is performed on a spiral scan at 2 mm thick sections. Study is performed with intravenous contrast timed for evaluation for pulmonary embolism. This will limit additional po rtions of the evaluation. 3-D MIP images reconstructed by the technologist are reviewed on the compu ter in the coronal and sagittal planes. FINDINGS: There is a small central filling defect without complete obstruction in the right lower lobe branch. Example image series 4 image 90. This may be some chronic thrombus. No additional areas suspicious fo r pulmonary embolism are evident. The previous large pulmonary embolus at the first branch from the m ain pulmonary artery has resolved. No mediastinal or hilar adenopathy enlarged by CT criteria is evident. The ascending aorta diameter at the level of the main pulmonary artery is 4.7 cm. The main pulmonary artery diameter at the bifur cation is 2.9 cm. There is a 0.8 cm pleural-based density in the right midlung. Series 5 image 63 this may be somewhat smaller than comparison. There is a new 2.0 x 1.1 cm oval density adjacent to the major fissure and pleural margin on the righ t. Series 5 image 72. Follow-up is recommended. Limited CT section through the upper abdomen are unremarkable. IMPRESSION: 1. 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 2. Previous more central left pulmonary artery thrombus is not evident at this time. 3. Interval development of an oval nodule peripheral right middle lobe. Follow-up recommended.
== END | disposition home or self-care (01) ==
LOC: RADCTMAIN 13:49
PROVIDERS: ATTEND Internal Medicine Critical Care Medicine
DX: I26.99 Other pulmonary embolism without acute cor pulmonale (principal); R91.8 Other nonspecific abnormal finding of lung field
CPT/HCPCS: 82565; 84520; 71275; 36415; Q9967

== ENCOUNTER → 2024-10-27 | Outpatient (CLI) | payer MEDICARE ==
[2024-10-27 10:33] LABS: BUN/Creat Ratio 26.14 Ratio (12.00-20.00); Blood Urea Nitrogen 18.3 mg/dL (9.0-27.0); Calcium 9.1 mg/dL (8.7-10.3); Carbon Dioxide 26.3 mmol/L (21.6-31.8); Chloride 105 mmol/L (96-109); Chol/HDL Ratio 2.87 Ratio; Glucose 160 mg/dL (70-110); LDL Cholesterol,Calculated 49.9 mg/dL (0.0-131.0); Potassium 4.6 mmol/L (3.5-5.5); Sodium 140 mmol/L (135-145)
== END | disposition home or self-care (01) ==
LOC: LABWHC1 10-25 09:56
PROVIDERS: ATTEND Internal Medicine Clinical Cardiac Electrophysiology
DX: I42.0 Dilated cardiomyopathy (principal); I26.99 Other pulmonary embolism without acute cor pulmonale
CPT/HCPCS: 36415; 80048; 80061; 83036